=== PATIENT | female | born 1985 ===

== ENCOUNTER 2024-01-01 05:40 | Day surgery (SDC) | payer OTHER ==
[~2024-01-01 05:40] MED LIST: CABERGOLINE0.5 MG; CALCIO; MONTELUKAST 10 MG; VITAMINA D; [UNRECOGNIZED DRUG - OTHER]; symbicort
[2024-01-01] MEDS ORDERED: POVIDONE-IODINE 118 ML BOTT TOP ONE (07:45)
[2024-01-01] MEDS ORDERED: BUPIVACAINE LIPOSOME/PF 266 MG/20 ML VIAL IJ ONE (07:45)
[2024-01-01] MEDS ORDERED: HEMOSTATIC MATRIX 1 KIT KIT TOP ONE (08:00)
[2024-01-01] MEDS ORDERED: CEFTRIAXONE SODIUM 2,000 MG VIAL IV ONE (08:00)
[2024-01-01] MEDS ORDERED: DIBUCAINE 30 GM TUBE RECTAL ONE (08:00)
[2024-01-01] MEDS ORDERED: METRONIDAZOLE/SODIUM CHLORIDE 500 MG/100 ML PIGGYBACK IV ONE (08:00)
[2024-01-01] MEDS ORDERED: BUPIVACAINE HCL 30 ML VIAL IV ONE (08:30)
[2024-01-01] MEDS ORDERED: CELECOXIB200 MG PO (09:47)
[2024-01-01] MEDS ORDERED: INTESTINEX680 M1 PO (09:47)
[2024-01-01] MEDS ORDERED: PERCOCET 5-3251 EACH PO (09:47)
[2024-01-01] MEDS ORDERED: NEURONTIN300 MG PO (09:47)
== END 2024-01-01 13:35 | disposition home or self-care (01) ==
LOC: CIR.AMB 05:40
PROVIDERS: ATTEND Surgery
DX: K64.2 Third degree hemorrhoids (principal); K64.4 Residual hemorrhoidal skin tags; K62.5 Hemorrhage of anus and rectum